=== PATIENT | male | born 1995 | race Caucasian/White ===

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

== ENCOUNTER 2018-09-13 11:00 | Emergency (ER) | payer SELFPAY ==
[~2018-09-13] VITALS: Ht 175.3 cm; Wt 59.1 kg
[2018-09-13] MEDS ORDERED: BENZOCAINE/MENTHOL LOZENGE PO ONE (11:45)
[2018-09-13] MEDS ORDERED: BENZONATATE 100 MG CAPSULE PO ONE (11:45)
[2018-09-13] MEDS ORDERED: SODIUM CHLORIDE 0.65% 44 ML NASAL SPRAY NASAL ONE (11:45)
[2018-09-13] MEDS ORDERED: KETOROLAC TROMETHAMINE 30 MG/ML VIAL IM ONE (11:45)
[2018-09-13 13:21] VITALS: BP 124/70
== END 2018-09-13 13:33 | disposition home or self-care (01) ==
LOC: EMS 11:00
DX: J06.9 Acute upper respiratory infection, unspecified (principal)
CPT/HCPCS: 87430; 96372; 99284; J1885

== ENCOUNTER 2019-01-14 16:54 | Emergency (ER) | payer SELFPAY ==
[~2019-01-14] VITALS: Ht 177.8 cm; Wt 77.3 kg
[2019-01-14] MEDS ORDERED: CYCLOBENZAPRINE HCL 10 MG TABLET PO ONE (18:45)
[2019-01-14] MEDS ORDERED: KETOROLAC TROMETHAMINE 10 MG TABLET PO ONE (18:45)
[2019-01-14 19:34] VITALS: BP 124/76
== END 2019-01-14 19:41 | disposition home or self-care (01) ==
LOC: EMS 16:54
DX: S01.81XA Laceration without foreign body of other part of head, initial encounter (principal); S46.812A Strain of other muscles, fascia and tendons at shoulder and upper arm level, left arm, initial encounter; X99.8XXA Assault by other sharp object, initial encounter; Y93.89 Activity, other specified; Y92.89 Other specified places as the place of occurrence of the external cause; Y99.8 Other external cause status

== ENCOUNTER 2020-11-02 01:39 | Emergency (ER) | payer MEDICAID ==
[~2020-11-02] VITALS: Ht 180.3 cm; Wt 81.8 kg
[2020-11-02] MEDS ORDERED: LIDOCAINE 1% 10 ML VIAL ONE (05:04)
[2020-11-02 05:22] VITALS: BP 112/82
== END 2020-11-02 05:30 | disposition home or self-care (01) ==
LOC: EMS 01:40
DX: S01.511A Laceration without foreign body of lip, initial encounter (principal); W10.9XXA Fall (on) (from) unspecified stairs and steps, initial encounter; Y93.89 Activity, other specified; Y92.89 Other specified places as the place of occurrence of the external cause; Y99.8 Other external cause status
CPT/HCPCS: 99284; J3490; 99282

== ENCOUNTER 2023-03-01 19:44 | Emergency (ER) | payer MEDICAID ==
[~2023-03-01] VITALS: Ht 180.3 cm; Wt 77.3 kg
[2023-03-01 19:47] VITALS: TEMP 98.6
[2023-03-01] MEDS ORDERED: ONDANSETRON HCL 4 MG TABLET PO ONE (21:15)
[2023-03-01 21:27] LABS: BASOPHILS % (AUTO) 0.4 % (0.0-2.0); EOSINOPHILS % (AUTO) 0 % (1.0-6.0); HEMATOCRIT 42.5 % (41-53); LYMPHOCYTES % (AUTO) 7.2 % (22.0-44.0); MEAN CORPUSCULAR HEMOGLOBIN 27.5 pg (26.0-34.0); MEAN CORPUSCULAR HGB CONC 33.1 G/dL (31.0-37.0); MEAN CORPUSCULAR VOLUME 83 fL (80-100); MONOCYTES # (AUTO) 0.8 K/uL (0.1-1.0); MONOCYTES % (AUTO) 5.5 % (2.0-9.0); NEUTROPHILS # (AUTO) 11.9 K/uL (1.8-7.7); NEUTROPHILS % (AUTO) 86.9 % (40.0-70.0); PLATELET COUNT (AUTO) 285 K/uL (150-450); RED CELL DISTRIBUTION WIDTH 13.3 % (11.5-14.5); WHITE BLOOD COUNT (AUTO) 13.7 K/uL (4.5-11.0)
[2023-03-01 21:36] LABS: ANION GAP 11 mmol/L (8-16); CALCIUM, TOTAL 9.7 mg/dL (8.8-10.5); CARBON DIOXIDE 25 mmol/L (22-29); CHLORIDE 98 mmol/L (98-107); CREATININE 1.16 mg/dL (0.60-1.30); GLOMERULAR FILTR. RATE CALC > 60 mL/min (>60); GLUCOSE,RANDOM 120 mg/dL (70-110); POTASSIUM 3.9 mmol/L (3.5-5.1); SODIUM SERUM 134 mmol/L (136-145); UREA NITROGEN, BLOOD 16 mg/dL (7-18)
[2023-03-01 21:43] LABS: ALANINE AMINOTRANSFERASE 25 U/L (12-78); ALBUMIN 4.3 g/dL (3.4-5.0); ALKALINE PHOSPHATASE 78 U/L (46-116); ASPARTATE AMINOTRANSFERASE 17 U/L (15-37); BILIRUBIN,TOTAL 0.6 mg/dL (0.1-1.0); LIPASE 27 U/L (16-77); TOTAL PROTEIN, SERUM 9.1 g/dL (6.4-8.2)
[2023-03-01 21:48] LABS: RBC MORPHOLOGY COMMENT NORMAL RBC MORPH
[2023-03-01 22:05] LABS: APPEARANCE,URINE CLEAR (CLEAR); BILIRUBIN,URINE NEGATIVE (NEGATIVE); COLOR,URINE YELLOW (YELLOW); GLUCOSE, URINE (UA) NEGATIVE (NEGATIVE); KETONES,URINE TRACE mg/dL (NEGATIVE); LEUKOCYTE ESTERASE ,URINE NEGATIVE (NEGATIVE); NITRATE,URINE NEGATIVE (NEGATIVE); OCCULT BLOOD,URINE NEGATIVE (NEGATIVE); PROTEIN,URINE 30-70 mg/dL (NEGATIVE); SPECIFIC GRAVITIY, URINE 1.032 (1.003-1.030); UROBILINOGEN,URINE <=1.0 mg/dL (<=1.0)
[2023-03-01] MEDS ORDERED: SODIUM CHLORIDE 0.9% 1,000 ML IV ONE (22:30)
[2023-03-01] MEDS ORDERED: ONDA-104 PO (23:44)
[2023-03-02 00:01] VITALS: BP 124/73; PULSE 96; RESP 16
== END 2023-03-02 00:10 | disposition home or self-care (01) ==
LOC: EMS 19:44
DX: R11.2 Nausea with vomiting, unspecified (principal); F12.90 Cannabis use, unspecified, uncomplicated
CPT/HCPCS: 99284; 74176; 96360; 80053; 81003; 83690; 85025; 36415; 93005; Q0162; J7030